=== PATIENT | male | born 1995 | race Asian ===

== ENCOUNTER 2017-11-17 06:07 | Day surgery (SDC) | payer BC ==
[~2017-11-17] VITALS: Ht 177.8 cm; Wt 85.0 kg
[2017-11-17] MEDS ORDERED: MIDAZOLAM 1 MG/ML, 2ML ONE (07:08)
[2017-11-17] MEDS ORDERED: FENTANYL PF 100 MCG/2ML ONE (07:08)
[2017-11-17 07:18] VITALS: BP 146/87
[2017-11-17] MEDS ORDERED: CHOL2000 PO (07:18)
[2017-11-17] MEDS ORDERED: CETI10TA24 PO (07:18)
[2017-11-17] MEDS ORDERED: TURM500C4 PO (07:18)
[2017-11-17] MEDS ORDERED: LACTATED RINGERS 1,000 ML IV SCH (07:24)
[2017-11-17] MEDS ORDERED: BUPIVACAINE/PF-EPI 0.25% 1:200K ONE (07:44)
[2017-11-17] MEDS ORDERED: PROPOFOL 10 MG/ML, 20ML ONE (08:08)
[2017-11-17] MEDS ORDERED: ONDANSETRON 2MG/ML, 2ML ONE (08:08)
[2017-11-17] MEDS ORDERED: DEXAMETHASONE 4 MG/ML, 5ML ONE (08:08)
[2017-11-17] MEDS ORDERED: CEFAZOLIN 1,000 MG ONE (08:08)
[2017-11-17] MEDS ORDERED: HALOPERIDOL 5 MG/ML IV PRN (09:00)
[2017-11-17] MEDS ORDERED: FENTANYL PF 100 MCG/2ML IV PRN (09:00)
[2017-11-17] MEDS ORDERED: HYDROmorphone 1 MG/ML, 1ML IV PRN (09:00)
[2017-11-17] MEDS ORDERED: ACETAMINOPHEN 325 MG TABLET PO PRN (09:00)
[2017-11-17] MEDS ORDERED: OXYcodone 5 MG/5 ML ORAL.SOL UDC PO PRN (09:00)
[2017-11-17] MEDS ORDERED: MEPERIDINE/PF 50 MG/ML ONE (09:10)
[2017-11-17] MEDS ORDERED: MEPERIDINE/PF 25MG/0.5ML IVPush PRN (09:30)
== END 2017-11-17 10:40 ==
LOC: OUT 06:07
PROVIDERS: ATTEND Orthopaedic Surgery
DX: S46.321A Laceration of muscle, fascia and tendon of triceps, right arm, initial encounter (principal); X50.9XXA Other and unspecified overexertion or strenuous movements or postures, initial encounter; Y93.89 Activity, other specified; Y92.89 Other specified places as the place of occurrence of the external cause; Y99.8 Other external cause status; Z72.89 Other problems related to lifestyle
CPT/HCPCS: 24342; 64450; J0690; J1100; J2175; J2250; J2405; J2704; J3010; J7120